=== PATIENT | female | born 1985 | race Caucasian/White ===

== ENCOUNTER 2017-06-12 18:18 | Emergency (ER) | payer BC ==
[~2017-06-12] VITALS: Ht 160 cm; Wt 90.0 kg
[~2017-06-12 18:18] MED LIST: AMOXICILLIN500 MG PO; BIRTH CONTROL PILL; NAPROSYN500 MG PO; PRENATA6 PO; ULTRAM50 M1 OR; XANAX0.25 MG PO
[2017-06-12] MEDS ORDERED: ZITHROMAX250 MG PO (18:27)
[2017-06-12 19:01] LABS: HEMOGLOBIN 14.3 g/dl (12.0-16.0); IMMATURE GRANULOCYTES 0.3 % (0.0-1.0); MEAN CELL VOLUME 87.2 fL CALC (80.0-100.0); MEAN CORPUSCULAR HGB CONC 33.3 g/L CALC (32.0-36.0); NEUT# 9.22 thou/uL (2.00-7.15); RED BLOOD COUNT 4.93 mill/uL (4.20-5.60); RED CELL DISTRI WIDTH 12.2 % (11.5-15.5)
[2017-06-12 19:15] LABS: ALBUMIN 4.1 g/dL (3.2-5.0); ALKALINE PHOSPHATASE 114 u/l (38-126); ANION GAP 16 (6-22 (CALC)); BILIRUBIN, TOTAL 0.4 mg/dL (0.0-1.4); BUN 13 mg/dL (7-17); BUN/CREATININE RATIO 19 (12-20 (CALC)); CALCIUM 9.7 mg/dL (8.4-10.2); CARBON DIOXIDE 27 mmol/l (22-30); CHLORIDE 106 mmol/l (95-108); CREATININE 0.7 mg/dL (0.5-1.0); GFR > 60 ML/MIN (>=60 (CALC)); GFR FOR AFR.AMER. > 60 ML/MIN (>=60 (CALC)); GLUCOSE 101 mg/dL (65-105); POTASSIUM 4.6 mmol/l (3.5-5.1); SGOT/AST 18 u/l (14-36); SGPT/ALT 39 u/l (9-52); SODIUM 145 mmol/l (137-146); TOTAL PROTEIN 7.5 g/dL (6.3-8.2)
[2017-06-12 19:17] LABS: URINE BILIRUBIN - DIPSTICK NEGATIVE (NEGATIVE); URINE BLOOD DIPSTICK TRACE-INTACT (NEGATIVE); URINE CLARITY CLEAR; URINE COLOR YELLOW; URINE GLUCOSE - DIPSTICK NEGATIVE (NEGATIVE); URINE KETONE NEGATIVE (NEGATIVE); URINE LEUK ESTERASE NEGATIVE (NEGATIVE); URINE NITRITE - DIPSTICK NEGATIVE (Negative); URINE PH 5.5 (4.5-8.0); URINE PROTEIN - DIPSTICK NEGATIVE (NEG-TRACE); URINE SPECIFIC GRAVITY >=1.030; URINE UROBILINOGEN - DIPSTICK 0.2 E.U./dL (0.2)
[2017-06-12 20:07] VITALS: BP 132/79
== END 2017-06-12 20:16 | disposition home or self-care (01) | DRG 305 ==
LOC: ED 18:18
PROVIDERS: Emergency Medicine
DX: I10 Essential (primary) hypertension (principal); H66.92 Otitis media, unspecified, left ear

== ENCOUNTER 2018-01-25 19:50 | Emergency (ER) | payer BC ==
[~2018-01-25] VITALS: Ht 160 cm; Wt 96.2 kg
[~2018-01-25 19:50] MED LIST changes: +ZITHROMAX250 MG PO
[2018-01-25 20:48] LABS: HEMOGLOBIN 13.5 g/dl (12.0-16.0); IMMATURE GRANULOCYTES 0.4 % (0.0-1.0); MEAN CORPUSCULAR HGB CONC 32.9 g/L CALC (32.0-36.0); NEUT# 11.16 thou/uL (2.00-7.15); RED BLOOD COUNT 4.66 mill/uL (4.20-5.60); RED CELL DISTRI WIDTH 12.9 % (11.5-15.5)
[2018-01-25 20:49] LABS: URINE BILIRUBIN - DIPSTICK NEGATIVE (NEGATIVE); URINE BLOOD DIPSTICK NEGATIVE (NEGATIVE); URINE COLOR YELLOW; URINE GLUCOSE - DIPSTICK NEGATIVE (NEGATIVE); URINE KETONE NEGATIVE (NEGATIVE); URINE LEUK ESTERASE NEGATIVE (NEGATIVE); URINE NITRITE - DIPSTICK NEGATIVE (Negative); URINE PROTEIN - DIPSTICK NEGATIVE (NEG-TRACE); URINE UROBILINOGEN - DIPSTICK 0.2 E.U./dL (0.2)
[2018-01-25 20:50] LABS: URINE CLARITY CLEAR
[2018-01-25 20:52] LABS: ALBUMIN 3.7 g/dL (3.2-5.0); ALKALINE PHOSPHATASE 111 u/l (38-126); AMYLASE 49 u/l (30-110); ANION GAP 16 (6-22 (CALC)); BILIRUBIN, TOTAL 0.3 mg/dL (0.0-1.4); BUN 11 mg/dL (7-17); BUN/CREATININE RATIO 15 (12-20 (CALC)); CARBON DIOXIDE 24 mmol/l (22-30); CHLORIDE 107 mmol/l (95-108); CREATININE 0.8 mg/dL (0.5-1.0); GFR > 60 ML/MIN (>=60 (CALC)); GFR FOR AFR.AMER. > 60 ML/MIN (>=60 (CALC)); LIPASE 119 u/l (23-300); POTASSIUM 4.4 mmol/l (3.5-5.1); SGOT/AST 24 u/l (14-36); SGPT/ALT 41 u/l (9-52); SODIUM 143 mmol/l (137-146); TOTAL PROTEIN 7.1 g/dL (6.3-8.2)
[2018-01-25] MEDS ORDERED: ULTRAM50 M1 PO (23:33)
[2018-01-25] MEDS ORDERED: BACTRIM DS1 TAB PO (23:33)
[2018-01-25 23:40] VITALS: BP 142/73
== END 2018-01-25 23:40 | disposition home or self-care (01) | DRG 392 ==
LOC: ED 19:50
PROVIDERS: Emergency Medicine
DX: R10.84 Generalized abdominal pain (principal); N83.201 Unspecified ovarian cyst, right side; R11.0 Nausea; R50.9 Fever, unspecified
CPT/HCPCS: Q9967

== ENCOUNTER 2018-05-29 19:25 | Emergency (ER) | payer BC ==
[~2018-05-29] VITALS: Ht 160 cm; Wt 95.0 kg
[~2018-05-29 19:25] MED LIST changes: +BACTRIM DS1 TAB PO; +ULTRAM50 M1 PO
[2018-05-29] MEDS ORDERED: TRAMADOL HCL50 MG PO (19:44)
[2018-05-29] MEDS ORDERED: IBUPROFEN600 MG PO (19:44)
[2018-05-29] MEDS ORDERED: CLINDAMYCIN300 M1 PO (19:44)
[2018-05-29 19:54] VITALS: BP 160/95
== END 2018-05-29 19:54 | disposition home or self-care (01) | DRG 159 ==
LOC: ED 19:25
DX: K02.9 Dental caries, unspecified (principal); K03.81 Cracked tooth; K04.7 Periapical abscess without sinus; I10 Essential (primary) hypertension

== ENCOUNTER 2020-06-01 19:12 | Emergency (ER) | payer MEDICAID ==
[~2020-06-01] VITALS: Ht 160 cm; Wt 90.9 kg
[~2020-06-01 19:12] MED LIST changes: +CLINDAMYCIN300 M1 PO; +IBUPROFEN600 MG PO; +TRAMADOL HCL50 MG PO
[2020-06-01 20:04] LABS: HEMATOCRIT 46.5 % (37.0-47.0); IMMATURE GRANULOCYTES 0.3 % (0.0-5.0); MEAN CELL VOLUME 85.8 fL CALC (80.0-100.0); MEAN CORPUSCULAR HGB 27.7 pG CALC (26.0-32.0); MEAN CORPUSCULAR HGB CONC 32.3 g/dL CAL (32.0-36.0); NEUT# 8.97 thou/uL (2.00-7.15); RED BLOOD COUNT 5.42 mill/uL (4.20-5.60); RED CELL DISTRI WIDTH 12.8 % (11.5-15.5)
[2020-06-01 20:06] LABS: URINE BILIRUBIN - DIPSTICK NEGATIVE (NEGATIVE); URINE BLOOD DIPSTICK NEGATIVE (NEGATIVE); URINE COLOR YELLOW; URINE GLUCOSE - DIPSTICK NEGATIVE (NEGATIVE); URINE KETONE NEGATIVE (NEGATIVE); URINE LEUK ESTERASE NEGATIVE (NEGATIVE); URINE NITRITE - DIPSTICK NEGATIVE (Negative); URINE PH 5.5 (4.5-8.0); URINE PROTEIN - DIPSTICK NEGATIVE (NEG-TRACE); URINE SPECIFIC GRAVITY >=1.030; URINE UROBILINOGEN - DIPSTICK 0.2 E.U./dL (0.2)
[2020-06-01 20:26] LABS: ALBUMIN 4.2 g/dL (3.2-5.0); ALKALINE PHOSPHATASE 142 u/l (38-126); ANION GAP 13 (6-22 (CALC)); BILIRUBIN, TOTAL 0.3 mg/dL (0.0-1.4); BUN 12 mg/dL (7-17); BUN/CREATININE RATIO 15 (12-20 (CALC)); CHLORIDE 100 mmol/l (95-108); CREATININE 0.8 mg/dL (0.5-1.0); GFR > 60 ML/MIN (>=60 (CALC)); GFR FOR AFR.AMER. > 60 ML/MIN (>=60 (CALC)); POTASSIUM 3.7 mmol/l (3.5-5.1); SGOT/AST 40 u/l (14-36); SODIUM 139 mmol/l (137-146); TOTAL PROTEIN 7.9 g/dL (6.3-8.2)
[2020-06-01 20:27] LABS: CARBON DIOXIDE 30 mmol/l (22-30); PROTHROMBIN TIME 9.9 SECONDS (9.0-12.5)
[2020-06-01 21:02] VITALS: BP 138/88
== END 2020-06-01 21:02 | disposition home or self-care (01) ==
LOC: ED 19:12
DX: I10 Essential (primary) hypertension (principal); R74.8 Abnormal levels of other serum enzymes; D72.829 Elevated white blood cell count, unspecified

== ENCOUNTER 2022-07-19 22:49 | Emergency (ER) | payer MEDICAID ==
[~2022-07-19] VITALS: Ht 160 cm; Wt 86.0 kg
[2022-07-19 23:17] VITALS: BP 162/110
[2022-07-19 23:21] VITALS: BP 144/92
[2022-07-19 23:30] VITALS: BP 136/83
[2022-07-19] MEDS ORDERED: LEVOTHYROXIN50 MCG PO (23:33)
[2022-07-19 23:45] VITALS: BP 149/98
[2022-07-20 00:15] VITALS: BP 141/100
[2022-07-20 00:30] VITALS: BP 138/94
[2022-07-20 00:41] VITALS: BP 138/94
== END 2022-07-20 00:49 | disposition home or self-care (01) ==
LOC: ED 22:49
DX: S00.12XA Contusion of left eyelid and periocular area, initial encounter (principal); S00.11XA Contusion of right eyelid and periocular area, initial encounter; I10 Essential (primary) hypertension; W21.11XA Struck by baseball bat, initial encounter; Y93.64 Activity, baseball

== ENCOUNTER 2024-10-25 10:05 | Emergency (ER) | payer SELFPAY ==
[2024-10-25] VITALS (11 sets, daily range): BP systolic 121–148; BP diastolic 80–96
[~2024-10-25] VITALS: Ht 160 cm; Wt 74.0 kg
[~2024-10-25 10:05] MED LIST changes: +LEVOTHYROXIN50 MCG PO; +NITROFURANTN100 M2 PO
[2024-10-25] MEDS ORDERED: LIDOCAINE VISCOUS 2% 15 ML UDC PO ONE (10:40)
[2024-10-25] MEDS ORDERED: ALUM & MAG HYDROX-SIMETHICONE 30 ML PO ONE (10:40)
[2024-10-25 10:41] LABS: BASO% 0.6 % (0-3); EOS% 2.2 % (0-8); HEMATOCRIT 45.3 % (37.0-47.0); IMMATURE GRANULOCYTES 0.1 % (0.0-5.0); LYMPH% 28.4 % (15-41); MEAN CELL VOLUME 85.3 fL CALC (80.0-100.0); MEAN CORPUSCULAR HGB 28.2 pG CALC (26.0-32.0); MEAN CORPUSCULAR HGB CONC 33.1 g/dL CAL (32.0-36.0); MONO% 6.4 % (2-13); NEUT# 7.58 thou/uL (2.00-7.15); NEUT% 62.3 % (42-76); RED BLOOD COUNT 5.31 mill/uL (4.20-5.60); RED CELL DISTRI WIDTH 12.6 % (11.5-15.5)
[2024-10-25 10:54] LABS: ALBUMIN 4.2 g/dL (3.2-5.0); BILIRUBIN, TOTAL 0.7 mg/dL (0.02-1.3); CREATININE 0.7 mg/dL (0.5-1.0); POTASSIUM 4.1 mmol/l (3.5-5.1); TOTAL PROTEIN 7.3 g/dL (6.3-8.2)
[2024-10-25 11:45] LABS: URINE BILIRUBIN - DIPSTICK Negative (NEGATIVE); URINE BLOOD DIPSTICK Trace-lysed (NEGATIVE); URINE COLOR Yellow; URINE GLUCOSE - DIPSTICK Negative (NEGATIVE); URINE KETONE Negative (NEGATIVE); URINE LEUK ESTERASE Small (NEGATIVE); URINE NITRITE - DIPSTICK Negative (Negative); URINE PH 5.5 (4.5-8.0); URINE PROTEIN - DIPSTICK Negative (NEG-TRACE); URINE SPECIFIC GRAVITY 1.015; URINE UROBILINOGEN - DIPSTICK 0.2 E.U./dL (0.2)
[2024-10-25 11:54] LABS: URINE TRANSITIONAL EPI. CELLS MANY hpf
[2024-10-25 11:55] LABS: URINE BACTERIA FEW hpf
[2024-10-25] MEDS ORDERED: ZOFRAN4 MG/TAB PO (14:06)
[2024-10-25] MEDS ORDERED: PROTONIX40 M2 PO (14:06)
== END 2024-10-25 14:21 | disposition home or self-care (01) | DRG 392 ==
LOC: ED 10:05
PROVIDERS: Family Medicine
DX: R10.13 Epigastric pain (principal); I10 Essential (primary) hypertension; E03.9 Hypothyroidism, unspecified
CPT/HCPCS: Q9967